=== PATIENT | female | born 1930 | race Caucasian/White ===

== ENCOUNTER 2016-11-17 23:30 | Emergency (ER) | payer OTHER, MEDICARE ==
[~2016-11-17] VITALS: Ht 160 cm; Wt 75.5 kg
[~2016-11-17 23:30] MED LIST: ACCUNEB0.63 MG/3 IH; ALBUTEROL0.63 MG/3 IH; ALBUTEROL2.5 MG/3 M IH; AMBIEN CR6.25 MG PO; ARICEPT10 MG PO; ASPIR-LOW81 MG PO; ASPIRIN81 M2 PO; ATIVAN0.5 MG PO; Aspirin E.C. PO; BACTRIM,SEPT1 TABLET PO; BONIVA150 MG PO; CARBIDOPA/LEVO1 EACH PO; CEPACOL SORE T1 EAC3 MM; CIPRO500 MG PO; COUGH SYRU100 MG/5 M PO; COZAAR100 MG PO; Cozaar PO; DONEPEZIL HCL10 MG PO; ELIQUIS5 MG PO; EXELON PATCH4.6 MG TD; FERROUS SULFAT325 MG PO; FOLIC ACID1 MG PO; GERI-LANTA LIQ355 ML PO; GUAIFENESI100 MG/5 M PO; HYZAAR 100-21 TABLET PO; K-DUR20 MEQ PO; K-Dur PO; KLOR-CON20 MEQ PO; LATANOPROST2.5 ML BOTH EYES; LEVOFLOXACIN750 MG PO; LEVOTHROID50 MCG PO; LEVOTHYROXINE50 MCG PO; LIDODERM 5% P1 PATCH PO; LIDODERM 5% P1 PATCH TD; LOPRESSOR100 M1 PO; LOPRESSOR50 MG PO; LORAZEPAM0.5 MG PO; LOSARTAN POTAS100 MG PO; LOW DOSE ASPIRI81 M2 PO; Levothroid,Synthroid PO; Lopressor PO; MELOXICAM7.5 MG PO; METOCLOPRAMIDE H5 MG PO; METOPROLOL SUCC25 MG PO; METOPROLOL TAR100 MG PO; MILK OF MAGN PO; MIRALAX17 GM PO; MUCINEX600 MG PO; MYLANTA 360 ML360 ML PO; NAPROSYN500 MG PO; Norvasc PO; OMEPRAZOLE20 MG PO; POLYETHYLENE GL17 GM PO; PRADAXA150 MG PO; PREDNISONE20 MG PO; PRILOSEC20 MG PO; PROAIR HFA8.5 GM IH; Proventil,Ventolin H IH; RANEXA500 MG PO; REGLAN5 MG PO; ROBITUSSIN100 MG/5 M PO; Ranexa PO; SINEMET 25-1001 EACH PO; SODIUM CHLORIDE1 G1 PO; SORE THROAT LO1 EACH MM; SORE THROAT MM; SPIRIVA1 INHALATI IH; SYMBICORT60 INHALAT IH; SYNTHROID50 MCG PO; Sodium Chloride PO; TRAMADOL HCL50 MG PO; TYLENOL EXTRA500 MG PO; TYLENOL REGULA325 MG PO; ULTRAM50 MG PO; VENTOLIN HFA18 GM IH; VOLTAREN 1% GE100 GM TP; XALATAN2.5 ML BOTH EYES; Xalatan 0.005% Ophth BOTH EYES; ZOLOFT50 MG PO
[2016-11-18 00:12] LABS: EOSINOPHIL COUNT 0.2 K/uL (0-0.3); HEMATOCRIT 33.9 % (36.0-46.0); IMMATURE GRANULOCYTE (%) 0.3 % (0.0-0.7); IMMATURE GRANULOCYTE COUNT 0.2 K/uL; LYMPHOCYTE COUNT 1.6 K/uL (1.0-2.8); MCH 27.3 PG (29.0-34.0); MCHC 32.2 G/DL (30.0-36.0); MEAN PLAT.VOLUME 9.7 uM^3 (9.5-12.4); MONOCYTE (%) 8.9 % (3-12); MONOCYTE COUNT 0.7 K/uL (0-0.8); NEUTROPHIL (%) 66.8 % (45-76); NEUTROPHIL COUNT 5.2 K/uL (1.8-6.4); PLATELET COUNT 249 K/uL (156-360); RBC DIS.WIDTH-CV 14.4 % (11.8-14.6); RED BLOOD COUNT 3.99 M/uL (3.80-5.20); WHITE BLOOD COUNT 7.8 K/uL (4.1-10.2)
[2016-11-18 00:22] LABS: CHLORIDE 105 mEq/L (99-109); POTASSIUM 4.1 mEq/L (3.7-5.4); SODIUM 140 mEq/L (136-147)
[2016-11-18 00:24] LABS: GLUCOSE 108 mg/dL (70-99)
[2016-11-18 00:25] LABS: ANION GAP 11 MEQ/L (2-14)
[2016-11-18 00:28] LABS: GFR ESTIMATE (CALCULATED) > 59 mL/min/
[2016-11-18 00:29] LABS: UREA NITROGEN (BUN) 18 mg/dL (9-23)
[2016-11-18 00:32] LABS: TROP-I INTERPRETATION NEGATIVE; TROPONIN-I < 0.01 ng/mL (0.0-0.30)
[2016-11-18 01:03] LABS: ADD MIUA? YES; BILIRUBIN NEGATIVE; BLOOD NEGATIVE; COLOR YELLOW ((YELLOW)); GLUCOSE (STRIP) NEGATIVE; KETONES NEGATIVE; LEUKOCYTES MODERATE; NITRITE POSITIVE; PH, URINE 5.5 (5-8); PROTEIN (STRIP) NEGATIVE; SPECIFIC GRAVITY 1.009 (1.000-1.030); UROBILINOGEN 0.2 MG/DL (0.2-1.0)
[2016-11-18] MEDS ORDERED: BACTRIM,SEPT1 TABLET PO (01:07)
[2016-11-18 01:16] LABS: BACTERIA 3+; CASTS NONE SEEN /LPF; CRYSTALS NONE SEEN; EPITHELIAL CELLS RARE; MUCUS NONE SEEN; RED BLOOD CELLS NONE SEEN /HPF (0-5); UCUL ADDED? YES; WHITE BLOOD CELLS 40-50 /HPF (0-5)
[2016-11-18 02:39] VITALS: BP 164/99
== END 2016-11-18 02:47 | disposition home or self-care (01) ==
LOC: EME → EDBD 23:30 → EME 23:30
PROVIDERS: Emergency Medicine
DX: N39.0 Urinary tract infection, site not specified (principal); J44.9 Chronic obstructive pulmonary disease, unspecified; I10 Essential (primary) hypertension; F03.90 Unspecified dementia, unspecified severity, without behavioral disturbance, psychotic disturbance, mood disturbance, and anxiety; Z87.891 Personal history of nicotine dependence; Z79.82 Long term (current) use of aspirin
CPT/HCPCS: 80048; 81003; 84484; 85025; 87077; 87086; 87186; 93005; 99281; 99284